=== PATIENT | male | born 1955 | race Caucasian/White ===

== ENCOUNTER 2019-03-29 13:52 | Emergency (ER) | payer OTHER ==
[~2019-03-29] VITALS: Ht 167.6 cm; Wt 77.1 kg
[2019-03-29 14:00] VITALS: BP_SYST 114
--- NOTE | 2019-03-29 14:00 | NUR ---
BROUGHT IN BY [facility] AND [facility]ACED IN BED #5, TRIAGED, REPORT GIVEN TO RADHA PT IS HERE FOR MEDICAL CLEARANCE TO GO TO [facility], [id number]
--- NOTE | 2019-03-29 14:08 | NUR ---
Pt AAOx1 from [facility] for medical clearance prior to admittance to [address] for psych evaluation. Pt slurring, agitated, hyperverbal. PT ambulatory and refusing to answer questions.
--- NOTE | 2019-03-29 14:20 | NUR ---
ER Dr. Henao at bedside examining patient.
--- NOTE | 2019-03-29 14:30 | NUR ---
Sample from nares for MRSA taken and sent to lab. Pt slurring words and hyperverbal, difficult to understand. Per pt, states "I can't pee. I can't pee right now. I have nothing in me."
[2019-03-29 14:40] LABS: BASOPHILS % (AUTO) 0.7 % (0.0-2.0); EOSINOPHILS # (AUTO) 0.4 K/uL (0.0-0.4); EOSINOPHILS % (AUTO) 5.9 % (0.0-4.0); HEMATOCRIT 38.4 % (36-54); HEMOGLOBIN 12.5 g/dL (14.0-18.0); LYMPHOCYTES # (AUTO) 0.9 K/uL (1.0-5.5); LYMPHOCYTES % (AUTO) 13.2 % (20.5-51.5); MEAN CORPUSCULAR HEMOGLOBIN 31 pg (27-31); MEAN CORPUSCULAR HGB CONC 32 % (32-36); MEAN CORPUSCULAR VOLUME 95 fL (79.0-98.0); MONOCYTES # (AUTO) 0.7 K/uL (0.0-1.0); MONOCYTES % (AUTO) 11.3 % (1.7-9.3); NEUTROPHILS # (AUTO) 4.5 K/uL (1.8-7.7); NEUTROPHILS % (AUTO) 68.9 % (40.0-70.0); PLATELET COUNT (AUTO) 156 K/uL (130-430); RED BLOOD CELL COUNT(AUTO) 4.05 MIL/uL (4.2-6.2); RED CELL DISTRIBUTION WIDTH 15.1 % (9.0-15.0); WHITE BLOOD COUNT (AUTO) 6.5 K/uL (4.8-10.8)
--- NOTE | 2019-03-29 14:42 | NUR ---
Dr. Agarwal called ED and informed staff that admitting orders should be placed under Dr. Agarwal.
[2019-03-29 14:53] LABS: CHOLESTEROL 109 mg/dL (<200); HDL CHOLESTEROL 42 mg/dL (>45); LDL CHOLESTEROL 53 mg/dL (<100); TRIGLYCERIDES 49 mg/dL (30-150)
--- NOTE | 2019-03-29 14:53 | NUR ---
Pt has been accepted at [facility] and will be going to room 54B s/p medical clearance.
[2019-03-29 14:54] LABS: BILIRUBIN,URINE NEGATIVE (NEGATIVE); BLOOD, URINE 1+ (NEGATIVE); CLARITY/URINE CLEAR (CLEAR); COLOR,URINE YELLOW (YELLOW); GLUCOSE,URINE NEGATIVE (NEGATIVE); KETONES,URINE NEGATIVE (NEGATIVE); LEUKOCYTE ESTERASE ,URINE NEGATIVE (NEGATIVE); NITRITE, URINE NEGATIVE (NEGATIVE); PROTEIN URINE NEGATIVE (NEGATIVE); UROBILINOGEN,URINE 0.2 (0.2-1.0)
[2019-03-29 14:57] LABS: CALCIUM 8.7 mg/dL (8.4-11.0); CHLORIDE 105 mmol/L (98-107); CREATININE 1.13 mg/dL (0.55-1.30); GLUCOSE 78 mg/dL (70-99); POTASSIUM 4.4 mmol/L (3.5-5.1); SODIUM SERUM 139 mmol/L (136-145); UREA NITROGEN, BLOOD 28 mg/dL (8-21)
[2019-03-29 14:58] LABS: ANION GAP < 3 (5-15); GFR AFRICAN AMERICAN 84 mL/min (>90)
[2019-03-29 15:02] LABS: ALANINE AMINOTRANSFERASE 17 U/L (12-78); ALBUMIN 2.7 g/dL (3.4-4.8); ASPARTATE AMINOTRANSFERASE 21 U/L (10-37); TOTAL BILIRUBIN 0.4 mg/dL (0.0-1.0)
[2019-03-29 15:03] LABS: ACETAMINOPHEN < 1 ug/mL (1-30); ALCOHOL, BLOOD < 3 mg/dL (<10)
[2019-03-29 15:03] LABS: BACTERIA,URINE RARE /HPF (None Seen); MUCUS,URINE 1+ /LPF (None Seen); RBC,URINE 0-3 /HPF (0-3); WBC,URINE 0-3 /HPF (0-3)
--- NOTE | 2019-03-29 15:37 | NUR ---
Pt given sugar free jello per request.
[2019-03-29 16:15] VITALS: BP_SYST 116
--- NOTE | 2019-03-29 16:31 | NUR ---
Patient to be transferred to [facility]. Is being transferred due to higher level of care. Receiving facility has accepting physician and available space. ER physician has signed transfer form. Patient or responsible green party has agreed to transfer and signed form. Patient belongings inventoried and will be sent with patient. Copy of nursing notes, lab reports, EKG, Physicians Orders and X-rays to be sent with patient. Report called to Carol GOMEZ at receiving facility. Receiving physician is Dr. Alejandra. Ambulance service has been called for transfer. ETA is now.
== END 2019-03-29 16:31 ==
LOC: SED 13:52
DX: F30.9 Manic episode, unspecified (principal); F41.9 Anxiety disorder, unspecified
CPT/HCPCS: 36415; 80053; 80061; 81000; 83036; 85025; 87081; 99285; G0480; G0481; G0482

== ENCOUNTER 2019-04-07 08:04 | Outpatient (CLI) | payer OTHER ==
[2019-04-07 08:29] LABS: BASOPHILS % (AUTO) 0.7 % (0.0-2.0); EOSINOPHILS # (AUTO) 0.3 K/uL (0.0-0.4); EOSINOPHILS % (AUTO) 4.7 % (0.0-4.0); HEMATOCRIT 39.8 % (36-54); LYMPHOCYTES # (AUTO) 1.3 K/uL (1.0-5.5); LYMPHOCYTES % (AUTO) 20.7 % (20.5-51.5); MEAN CORPUSCULAR HEMOGLOBIN 31 pg (27-31); MEAN CORPUSCULAR HGB CONC 33 % (32-36); MEAN CORPUSCULAR VOLUME 95 fL (79.0-98.0); MONOCYTES # (AUTO) 0.8 K/uL (0.0-1.0); MONOCYTES % (AUTO) 11.7 % (1.7-9.3); NEUTROPHILS % (AUTO) 62.2 % (40.0-70.0); PLATELET COUNT (AUTO) 273 K/uL (130-430); RED BLOOD CELL COUNT(AUTO) 4.19 MIL/uL (4.2-6.2); RED CELL DISTRIBUTION WIDTH 15.4 % (9.0-15.0); WHITE BLOOD COUNT (AUTO) 6.5 K/uL (4.8-10.8)
== END 2019-04-07 19:08 | disposition home or self-care (01) ==
LOC: SLB 08:04
PROVIDERS: ATTEND Psychiatry & Neurology Psychiatry
DX: Z00.00 Encounter for general adult medical examination without abnormal findings (principal)
CPT/HCPCS: 36415; 85025

== ENCOUNTER 2019-04-09 12:45 | Outpatient (CLI) | payer OTHER ==
[2019-04-09 14:33] LABS: CALCIUM 8.4 mg/dL (8.4-11.0); POTASSIUM 4.4 mmol/L (3.5-5.1)
[2019-04-09 14:40] LABS: BASOPHILS # (AUTO) 0.1 K/uL (0.0-0.2); BASOPHILS % (AUTO) 0.9 % (0.0-2.0); EOSINOPHILS # (AUTO) 0.3 K/uL (0.0-0.4); EOSINOPHILS % (AUTO) 4.8 % (0.0-4.0); HEMATOCRIT 41.7 % (36-54); HEMOGLOBIN 13.5 g/dL (14.0-18.0); MEAN CORPUSCULAR HEMOGLOBIN 31 pg (27-31); MEAN CORPUSCULAR HGB CONC 32 % (32-36); MEAN CORPUSCULAR VOLUME 95 fL (79.0-98.0); MONOCYTES # (AUTO) 0.7 K/uL (0.0-1.0); MONOCYTES % (AUTO) 11.7 % (1.7-9.3); NEUTROPHILS % (AUTO) 66.6 % (40.0-70.0); PLATELET COUNT (AUTO) 235 K/uL (130-430); RED BLOOD CELL COUNT(AUTO) 4.41 MIL/uL (4.2-6.2); RED CELL DISTRIBUTION WIDTH 15.4 % (9.0-15.0)
[2019-04-09 15:10] LABS: CREATININE 0.96 mg/dL (0.55-1.30)
== END 2019-04-09 21:06 | disposition home or self-care (01) ==
LOC: SLB 12:45
PROVIDERS: ATTEND Psychiatry & Neurology Psychiatry
DX: Z00.00 Encounter for general adult medical examination without abnormal findings (principal)
CPT/HCPCS: 36415; 80048; 85025

== ENCOUNTER 2019-04-15 15:32 | Outpatient (CLI) | payer OTHER ==
[2019-04-15 15:57] LABS: BASOPHILS % (AUTO) 0.3 % (0.0-2.0); EOSINOPHILS # (AUTO) 0.3 K/uL (0.0-0.4); EOSINOPHILS % (AUTO) 5.2 % (0.0-4.0); HEMATOCRIT 35.2 % (36-54); HEMOGLOBIN 11.7 g/dL (14.0-18.0); LYMPHOCYTES # (AUTO) 1.2 K/uL (1.0-5.5); LYMPHOCYTES % (AUTO) 20.2 % (20.5-51.5); MEAN CORPUSCULAR HEMOGLOBIN 31 pg (27-31); MEAN CORPUSCULAR HGB CONC 33 % (32-36); MEAN CORPUSCULAR VOLUME 94 fL (79.0-98.0); MONOCYTES # (AUTO) 0.7 K/uL (0.0-1.0); MONOCYTES % (AUTO) 12.2 % (1.7-9.3); NEUTROPHILS # (AUTO) 3.6 K/uL (1.8-7.7); NEUTROPHILS % (AUTO) 62.1 % (40.0-70.0); PLATELET COUNT (AUTO) 171 K/uL (130-430); RED BLOOD CELL COUNT(AUTO) 3.75 MIL/uL (4.2-6.2); RED CELL DISTRIBUTION WIDTH 15.5 % (9.0-15.0); WHITE BLOOD COUNT (AUTO) 5.7 K/uL (4.8-10.8)
== END 2019-04-15 17:47 | disposition home or self-care (01) ==
LOC: SLB 15:32
PROVIDERS: ATTEND Psychiatry & Neurology Psychiatry
DX: Z00.00 Encounter for general adult medical examination without abnormal findings (principal)
CPT/HCPCS: 36415; 85025

== ENCOUNTER 2019-05-28 19:44 | Emergency (ER) | payer OTHER, MEDICAID ==
[~2019-05-28] VITALS: Ht 177.8 cm; Wt 72.6 kg
[2019-05-28 19:50] VITALS: BP_SYST 109
--- NOTE | 2019-05-28 19:50 | NUR ---
Patient triaged and placed in er [address]. VSS and patient appears in no acute distress at this time. Accompanied by EMS, awaiting available bed, and MD notified of need for MSE.
--- NOTE | 2019-05-28 19:50 | NUR ---
Pt brought in from [facility] for medical clearance prior to admit to the [facility] facility. Pt awake, alert, oriented x3. Pt agitated and confused for the past few days per staff. Pt Denies chest pain, nausea, vomiting, diarrhea, shortness of breath, weakness, dizziness. Pt denies any medical complaint at this time. Pt resting on ambulance gurney no signs of distress at this time.
--- NOTE | 2019-05-28 20:00 | NUR ---
ER at bedside examining patient.
[2019-05-28 20:19] LABS: BASOPHILS % (AUTO) 0.9 % (0.0-2.0); EOSINOPHILS # (AUTO) 0.3 K/uL (0.0-0.4); EOSINOPHILS % (AUTO) 5.4 % (0.0-4.0); HEMATOCRIT 25.9 % (36-54); HEMOGLOBIN 8.6 g/dL (14.0-18.0); LYMPHOCYTES # (AUTO) 1.2 K/uL (1.0-5.5); LYMPHOCYTES % (AUTO) 21.6 % (20.5-51.5); MEAN CORPUSCULAR HEMOGLOBIN 32 pg (27-31); MEAN CORPUSCULAR HGB CONC 33 % (32-36); MEAN CORPUSCULAR VOLUME 95 fL (79.0-98.0); MONOCYTES # (AUTO) 0.6 K/uL (0.0-1.0); MONOCYTES % (AUTO) 11.8 % (1.7-9.3); NEUTROPHILS # (AUTO) 3.2 K/uL (1.8-7.7); NEUTROPHILS % (AUTO) 60.3 % (40.0-70.0); PLATELET COUNT (AUTO) 267 K/uL (130-430); RED BLOOD CELL COUNT(AUTO) 2.71 MIL/uL (4.2-6.2); RED CELL DISTRIBUTION WIDTH 15.7 % (9.0-15.0); WHITE BLOOD COUNT (AUTO) 5.3 K/uL (4.8-10.8)
[2019-05-28 20:24] LABS: CALCIUM 8.5 mg/dL (8.4-11.0); CREATININE 1.19 mg/dL (0.55-1.30); POTASSIUM 4.8 mmol/L (3.5-5.1)
[2019-05-28 20:29] LABS: ALBUMIN 2.5 g/dL (3.4-4.8); TOTAL BILIRUBIN 0.3 mg/dL (0.0-1.0)
--- NOTE | 2019-05-28 20:30 | NUR ---
Report given to nurse Jaime GOMEZ.
[2019-05-28 21:49] LABS: ACETAMINOPHEN < 1 ug/mL (1-30)
[2019-05-28 21:50] LABS: ALCOHOL, BLOOD < 3 mg/dL (<10)
[2019-05-28 21:54] LABS: CHOLESTEROL 87 mg/dL (<200); HDL CHOLESTEROL 39 mg/dL (>45); LDL CHOLESTEROL 45 mg/dL (<100); TRIGLYCERIDES 25 mg/dL (30-150)
[2019-05-28 22:24] VITALS: BP_SYST 110
--- NOTE | 2019-05-28 22:24 | NUR ---
Patient to be transferred to [facility]. Is being transferred due to higher level of care. Receiving facility has accepting physician and available space. ER physician has signed transfer form. Patient or responsible democrat has agreed to transfer and signed form. Patient belongings inventoried and will be sent with patient. Copy of nursing notes, lab reports, EKG, Physicians Orders and X-rays to be sent with patient. Report called to JASON Early at receiving facility. Receiving physician is . ambulance service on scene for transfer.
== END 2019-05-28 22:24 ==
LOC: SED 19:44
DX: F41.9 Anxiety disorder, unspecified (principal); F20.9 Schizophrenia, unspecified; F31.9 Bipolar disorder, unspecified
CPT/HCPCS: 36415; 80053; 80061; 83036; 85025; 87081; 99285; G0480; G0481; G0482

== ENCOUNTER 2021-01-30 00:13 | Emergency (ER) | payer OTHER, MEDICAID ==
[~2021-01-30] VITALS: Ht 177.8 cm; Wt 74.8 kg
[2021-01-30 00:13] VITALS: BP_SYST 135
--- NOTE | 2021-01-30 00:13 | NUR ---
Patient brought in by BLS from [facility] c/o bilateral LE pain and swelling. Patient is agitated and aggressive, was placed on 5150 he was to be transferred to [facility]. Patient is here for medical clearance before going to [facility] with exception that if patient's wound is stage 2 and above, [facility] will not accept him. Pt for ultrasound of his lower extremities bilaterally for possible DVT. Patient breathing easy, not in distress. Patient is agitated and aggressive, yelling on staff. Patient is in the ambulance [facility] awaiting available beds.
--- NOTE | 2021-01-30 00:13 | NUR ---
Patient in the ambulance bay with paramedics, no available beds at this time
[2021-01-30 01:20] VITALS: BP_SYST 129
--- NOTE | 2021-01-30 02:00 | NUR ---
Patient still in ambulance bay, respirations even unlabored, not in distress. Under the care of the Paramedics
--- NOTE | 2021-01-30 02:15 | NUR ---
Patient seen by Dr Pedraza in the ambulance bay, ordered labs
[2021-01-30 03:16] LABS: BASOPHILS % (AUTO) 0.5 % (0.0-2.0); EOSINOPHILS # (AUTO) 0.1 K/uL (0.0-0.4); EOSINOPHILS % (AUTO) 1.8 % (0.0-4.0); HEMATOCRIT 30.3 % (36-54); HEMOGLOBIN 9.9 g/dL (14.0-18.0); LYMPHOCYTES % (AUTO) 13.1 % (20.5-51.5); MEAN CORPUSCULAR HEMOGLOBIN 31 pg (27-31); MEAN CORPUSCULAR HGB CONC 33 % (32-36); MEAN CORPUSCULAR VOLUME 95 fL (79.0-98.0); MONOCYTES # (AUTO) 0.9 K/uL (0.0-1.0); MONOCYTES % (AUTO) 12.1 % (1.7-9.3); NEUTROPHILS # (AUTO) 5.5 K/uL (1.8-7.7); NEUTROPHILS % (AUTO) 72.5 % (40.0-70.0); PLATELET COUNT (AUTO) 283 K/uL (130-430); RED BLOOD CELL COUNT(AUTO) 3.19 MIL/uL (4.2-6.2); RED CELL DISTRIBUTION WIDTH 14.4 % (9.0-15.0); WHITE BLOOD COUNT (AUTO) 7.6 K/uL (4.8-10.8)
[2021-01-30 03:26] LABS: ANION GAP 5 (5-15); CALCIUM 8.9 mg/dL (8.4-11.0); CHLORIDE 108 mmol/L (98-107); CREATININE 1.23 mg/dL (0.55-1.30); GLUCOSE 96 mg/dL (70-99); POTASSIUM 4.2 mmol/L (3.5-5.1); SODIUM SERUM 140 mmol/L (136-145); UREA NITROGEN, BLOOD 24 mg/dL (8-21)
[2021-01-30 03:30] LABS: ALANINE AMINOTRANSFERASE 30 U/L (12-78); ALBUMIN 2.5 g/dL (3.4-4.8); ASPARTATE AMINOTRANSFERASE 32 U/L (10-37); CHOLESTEROL 88 mg/dL (<200); HDL CHOLESTEROL 41 mg/dL (>45); LDL CHOLESTEROL 56 mg/dL (<100); TOTAL BILIRUBIN 0.5 mg/dL (0.0-1.0); TRIGLYCERIDES 45 mg/dL (30-150)
[2021-01-30 03:33] LABS: ALCOHOL, BLOOD < 3 mg/dL (<10); GFR AFRICAN AMERICAN 75 mL/min (>90)
[2021-01-30 03:42] LABS: ACETAMINOPHEN < 1 ug/mL (1-30)
--- NOTE | 2021-01-30 07:36 | NUR ---
SPOKE WITH MARIA ESTHER AT [facility] AND PT CAN NOT GO THERE DUE TO STAGE 2 LEG ULCERS. SPOKE WITH SARAI AT [facility] AND EXPLAINED SITUATION WITH HIM, PT WILL BE RETURNING TO [facility].
--- NOTE | 2021-01-30 07:50 | NUR ---
Patient given written and verbal discharge instructions and verbalizes understanding. ER MD discussed with patient the results and treatment provided. Patient in stable condition. ID arm band removed. Rx of NONE given. Patient educated on pain management and to follow up with PMD. Pain Scale 0/10. Opportunity for questions provided and answered. Medication side effect fact sheet provided.
== END 2021-01-30 07:50 | disposition home or self-care (01) ==
LOC: SED 00:13
DX: I87.2 Venous insufficiency (chronic) (peripheral) (principal); F31.9 Bipolar disorder, unspecified; F41.9 Anxiety disorder, unspecified; F20.9 Schizophrenia, unspecified
CPT/HCPCS: 36415; 80053; 80061; 83036; 85025; 93970; 99284; G0480; G0481; G0482